=== PATIENT | female | born 1955 | race Caucasian/White ===

== ENCOUNTER → 2018-12-20 10:02 | Outpatient (CLI) | payer MEDICARE ==
[2018-12-20 12:29] LABS: BASOPHILS 0.5 % (0-2); EOSINOPHILS 1.7 % (0-7); HEMATOCRIT 42.2 % (36.0-48.0); HEMOGLOBIN 14.3 g/dL (12-16); IMMATURE GRANULOCYTES 0.3 % (0-5); LYMPHOCYTES 32.1 % (15-50); MCH 30.9 pg (26.0-34.0); MCHC 33.9 g/dL (31.0-37.0); MCV 91.1 fL (80.0-100.0); MEAN PLATELET VOLUME 9.1 fL (7.4-10.4); MONOCYTES 6.5 % (2-11); NEUTROPHILS 58.9 % (40-80); PLATELET COUNT 228 10x3/uL (130-400); RBC 4.63 10x6/uL (4.00-5.40); RDW 13.8 % (11.5-14.5); WBC 7.9 10x3/uL (4.8-10.8)
== END | disposition home or self-care (01) ==
LOC: D.RT 10:00
PROVIDERS: ATTEND Internal Medicine Pulmonary Disease
DX: J45.991 Cough variant asthma (principal)

== ENCOUNTER → 2019-03-30 15:02 | Outpatient (CLI) | payer BC | END | disposition home or self-care (01) | LOC: D.CT 13:00 | PROVIDERS: ATTEND Internal Medicine Pulmonary Disease | DX: J45.909 Unspecified asthma, uncomplicated (principal) ==